=== PATIENT | female | born 1970 | race Caucasian/White ===

== ENCOUNTER 2016-12-12 20:38 | Emergency (ER) | payer OTHER ==
[~2016-12-12] VITALS: Ht 180.3 cm; Wt 72.6 kg
[~2016-12-12 20:38] MED LIST: GBPN300C PO; NAPR-243 PO; NITR-65 PO; PARO20TA57 PO
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
--- NOTE | 2016-12-12 21:14 | Diagnostic Imaging Report ---
INDICATION: Injury to right hand. EXAM: AP, lateral and oblique views of the right hand are obtained at 9:20 hours p.m. FINDINGS: There is an acute fracture of the distal aspect of the fifth metacarpal, with slight volar angulation of the distal fragment. The remaining bony structures are intact. IMPRESSION: Acute fifth metacarpal fracture, as described above. Dictated by: Dictated on workstation # [id number]
[2016-12-12] MEDS ORDERED: RX-NAPROXEN (NAPROSYN) 250 MG TAB PPK#4 PO STA (21:15)
[2016-12-12] MEDS ORDERED: RX-TRAMADOL 50 MG (ULTRAM) TAB PPK#4 PO STA (21:15)
[2016-12-12] MEDS ORDERED: TRAM-42 PO (21:20)
[2016-12-12] MEDS ORDERED: NAPR500T3 PO (21:20)
[2016-12-12 21:27] VITALS: BP 119/61
== END 2016-12-12 21:29 | disposition home or self-care (01) ==
LOC: EDUNIT# 20:38 → ER 20:41
DX: S62.326A Displaced fracture of shaft of fifth metacarpal bone, right hand, initial encounter for closed fracture (principal); F17.210 Nicotine dependence, cigarettes, uncomplicated; W23.1XXA Caught, crushed, jammed, or pinched between stationary objects, initial encounter; Y92.013 Bedroom of single-family (private) house as the place of occurrence of the external cause; Y99.8 Other external cause status
CPT/HCPCS: 73130; 99283

== ENCOUNTER 2017-03-09 09:42 | Emergency (ER) | payer OTHER ==
[~2017-03-09] VITALS: Ht 167.6 cm; Wt 56.7 kg
[~2017-03-09 09:42] MED LIST changes: +NAPR500T3 PO; +TRAM-42 PO
[2017-03-09] MEDS ORDERED: NS IV 1000 ML 1,000 ML IV ONE (11:04)
--- NOTE | 2017-03-09 11:07 | ED General ---
General Chief Complaint: Abdominal/GI Problems Stated Complaint: DEHYDRATION SYMPTOMS/OVERHEATED 2 DAYS AGO Nursing Triage Note: C/O VOMITING AND ABD CRAMPING. ONSET TUESDAY. NO VOMITING TODAY. STATES SHE DOESN'T LIKE TO DRINK GATORAID/POWERAIDE. DECREASED URINATION. Nursing Sepsis Screen: No Definite Risk Source of Information: Patient Exam Limitations: No Limitations History of Present Illness Time Seen by Provider: 10:57 Initial Comments Here with report of being dehydrated. 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 States that she has not had a urination since then. Denies nausea or vomiting. States that she has been drinking fluids. Denies diarrhea. Timing/Duration: 1-2 Days Severity: Moderate Associated Systoms: No Cough, No Fever/Chills, No Nausea/Vomiting, No Weakness Allergies and Home Medications Allergies Coded Allergies: Sulfa(Sulfonamide Antibiotics) (Verified Allergy, Unknown, 11/17/07) Constitutional: see HPI, No chills, No fever EENTM: no symptoms reported Respiratory: no symptoms reported Cardiovascular: no symptoms reported Gastrointestinal: no symptoms reported Genitourinary: see HPI, decreased output Musculoskeletal: No back pain, muscle pain Skin: no symptoms reported All Other Systems Reviewed Negative Unless Noted: Yes Past Nzceuwf-Jvkjvm-Yektcu Hx Patient Social History Alcohol Use: Denies Use Recreational Drug Use: Yes (SMOKES 1 PPD) Smoking Status: Current Everyday Smoker Type Used: Cigarettes Recent Foreign Travel: No Contact w/Someone Who Travel: No Recent Infectious Disease Expo: No Recent Hopitalizations: No Immunizations Up To Date Tetanus Booster (TDap): Less than 5yrs Surgeries HX Surgeries: Yes (HYST/BSO; OVARIAN CYST REMOVAL; BILATERAL WRIST FRACTURE SURGERIES) Surgeries: Appendectomy, Hysterectomy, Oophorectomy, Orthopedic Respiratory Hx Respiratory Disorders: No Cardiovascular Hx Cardiac Disorders: No Neurological Hx Neurological Disorders: Yes Neurological Disorders: Headaches /Migraines Reproductive System Hx Reproductive Disorders: Yes (OVARIAN CYST) Female 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 Genitourinary Hx Genitourinary Disorders: Yes (HAS HAD UTI'S) Genitourinary Disorders: Bladder Infection Gastrointestinal Hx Gastrointestinal Disorders: No Musculoskeletal Hx Musculoskeletal Disorders: Yes Musculoskeletal Disorders: Chronic Back Pain, Fractures Endocrine Hx Endocrine Disorders: No HEENT HX ENT Disorders: Yes (ALL TEETH REMOVED) Cancer Hx Cancer: No Psychosocial Hx Psychiatric Problems: Yes Behavioral Health Disorders: Anxiety Integumentary HX Skin/Integumentary Disorder: No Blood Transfusions Hx Blood Disorders: No Reviewed Nursing Assessment Reviewed/Agree w Nursing PMH: Yes Family Medical History Significant Family History: No Pertinent Family Hx Physical Exam Vital Signs Vital Sign - Last 12Hours 03/09/17 10:21 Temp 96.9 Pulse 82 Resp 16 B/P (MAP) 111/69 Pulse Ox 98 O2 Delivery Room Air Capillary Refill : Less Than 3 Seconds General Appearance: No Apparent Distress, WD/WN HEENT: PERRL/EOMI, Pharynx Normal Neck: Non Tender, Supple Respiratory: Lungs Clear, Normal Breath Sounds Cardiovascular: Regular Rate, Rhythm, No Murmur Gastrointestinal: Non Tender, Soft Back: Normal Inspection, No CVA Tenderness, No Vertebral Tenderness Extremity: Non Tender, No Calf Tenderness Neurologic/Psychiatric: Alert, Oriented x3 Skin: Normal Color, Warm/Dry Progress/Results/Core Measures Results/Orders Lab Results Laboratory Tests Test 03/09/17 11:10 03/09/17 11:45 Range/Units Urine Color YELLOW Urine Clarity CLEAR Urine pH 5 5-9 Urine Specific [place] 1.030 H 1.016-1.022 Urine Protein 1+ H NEGATIVE Urine Glucose (UA) NEGATIVE NEGATIVE Urine Ketones NEGATIVE NEGATIVE Urine Nitrite NEGATIVE NEGATIVE Urine Bilirubin NEGATIVE NEGATIVE Urine Urobilinogen NORMAL NORMAL MG/DL Urine Leukocyte Esterase NEGATIVE NEGATIVE Urine RBC (Auto) 1+ H NEGATIVE Urine RBC RARE /HPF Urine WBC NONE /HPF Urine Squamous Epithelial Cells 5-10 /HPF Urine Crystals NONE /LPF Urine Bacteria TRACE /HPF Urine Casts PRESENT /LPF Urine Hyaline Casts RARE /LPF Urine Mucus SMALL H /LPF Urine Yeast FEW H /HPF Urine Culture Indicated YES White Blood Count 7.0 4.3-11.0 10^3/uL Red Blood Count 4.50 4.35-5.85 10^6/uL Hemoglobin 12.9 11.5-16.0 G/DL Hematocrit 38 35-52 % Mean Corpuscular Volume 85 80-99 FL Mean Corpuscular Hemoglobin 29 25-34 PG Mean Corpuscular Hemoglobin Concent 34 32-36 G/DL Red Cell Distribution Width 13.8 10.0-14.5 % Platelet Count 218 130-400 10^3/uL Mean Platelet Volume 11.4 H 7.4-10.4 FL Neutrophils (%) (Auto) 49 42-75 % Lymphocytes (%) (Auto) 42 12-44 % Monocytes (%) (Auto) 5 0-12 % Eosinophils (%) (Auto) 3 0-10 % Basophils (%) (Auto) 1 0-10 % Neutrophils # (Auto) 3.5 1.8-7.8 X 10^3 Lymphocytes # (Auto) 3.0 1.0-4.0 X 10^3 Monocytes # (Auto) 0.4 0.0-1.0 X 10^3 Eosinophils # (Auto) 0.2 0.0-0.3 10^3/uL Basophils # (Auto) 0.0 0.0-0.1 10^3/uL Sodium Level 141 135-145 MMOL/L Potassium Level 3.6 3.6-5.0 MMOL/L Chloride Level 107 98-107 MMOL/L Carbon Dioxide Level 27 21-32 MMOL/L Anion Gap 7 5-14 MMOL/L Blood Urea Nitrogen 15 7-18 MG/DL Creatinine 0.93 0.60-1.30 MG/DL Estimat Glomerular Filtration Rate > 60 BUN/Creatinine Ratio 16 Glucose Level 92 70-105 MG/DL Calcium Level 9.5 8.5-10.1 MG/DL Total Bilirubin 0.2 0.1-1.0 MG/DL Aspartate Amino Transf (AST/SGOT) 21 5-34 U/L Alanine Aminotransferase (ALT/SGPT) 18 0-55 U/L Alkaline Phosphatase 95 40-136 U/L Total Creatine Kinase 164 29-168 U/L Total Protein 7.2 6.4-8.2 GM/DL Albumin 4.4 3.2-4.5 GM/DL My Orders Orders - RAJI WONG MD Cbc With Automated Diff (03/09/17 11:04) Comprehensive Metabolic Panel (03/09/17 11:04) Creatine Kinase (03/09/17 11:04) Ua Culture If Indicated (03/09/17 11:04) Saline Lock/Iv-Start (03/09/17 11:04) Ns Iv 1000 Ml (Sodium Chloride 0.9%) (03/09/17 11:04) Urine Culture (03/09/17 11:10) Medications Given in ED Current Medications Medications Dose Ordered Sig/Adenike Route Start Time Stop Time Status Last Admin Dose Admin Sodium Chloride 1,000 ml @ 0 mls/hr Q0M ONCE IV 03/09/17 11:04 03/09/17 11:06 DC 03/09/17 11:39 1,000 MLS/HR Vital Signs/I&O Vital Sign - Last 12Hours 03/09/17 10:21 Temp 96.9 Pulse 82 Resp 16 B/P (MAP) 111/69 Pulse Ox 98 O2 Delivery Room Air Blood Pressure Mean: 83 Progress Note : Progress Note Seen and evaluated. IV, labs and UA ordered. Normal saline 1 L bolus. Monitor patient. 1250: Patient is feeling better and would like to go home. No significant amount and labs. She is requesting note for work. This was given. Discharged home with return precautions. Patient verbalize understanding instructions and agreement with plan. Departure Impression Impression: Primary Impression: Dehydration Disposition: 01 HOME, SELF-CARE Condition: Improved Departure-Patient Inst. Decision time for Depature: 12:52 Referrals: [facility] (PCP/Family) Primary Care Physician Patient Instructions: Dehydration, Adult (DC) Add. Discharge Instructions: All discharge instructions reviewed with patient and/or family. Voiced understanding. Drink plenty of fluids. Follow-up with your DrMilton in a few days for recheck. Return for worsening, fever, vomiting, weakness, breathing problems or other concerns as needed. Work/School Note: Work Release Form Date Seen in the Emergency Department: Mar 09, 2017 Return to Work: Mar 11, 2017 Restrictions: No Restrictions RAJI WONG MD Mar 09, 2017 11:07
[2017-03-09 11:56] LABS: BASOPHILS % (AUTO) 1 % (0-10); EOSINOPHILS # (AUTO) 0.2 10^3/uL (0.0-0.3); EOSINOPHILS % (AUTO) 3 % (0-10); LYMPHOCYTES % (AUTO) 42 % (12-44); MEAN CORPUSCULAR HEMOGLOBIN 29 PG (25-34); MEAN CORPUSCULAR HGB CONC 34 G/DL (32-36); MEAN CORPUSCULAR VOLUME 85 FL (80-99); MEAN PLATELET VOLUME 11.4 FL (7.4-10.4); MONOCYTES # (AUTO) 0.4 X 10^3 (0.0-1.0); MONOCYTES % (AUTO) 5 % (0-12); NEUTROPHILS # (AUTO) 3.5 X 10^3 (1.8-7.8); NEUTROPHILS % (AUTO) 49 % (42-75); PLATELET COUNT 218 10^3/uL (130-400); RED CELL DISTRIBUTION WIDTH 13.8 % (10.0-14.5)
[2017-03-09 11:58] LABS: BILIRUBIN,URINE NEGATIVE (NEGATIVE); KETONES,URINE NEGATIVE (NEGATIVE); LEUKOCYTE ESTERASE ,URINE NEGATIVE (NEGATIVE); NITRITE,URINE NEGATIVE (NEGATIVE); PH,URINE 5 (5-9); PROTEIN,URINE 1+ (NEGATIVE); UROBILINOGEN,URINE NORMAL (NORMAL)
[2017-03-09 12:13] LABS: ALANINE AMINOTRANSFERASE 18 U/L (0-55); ALBUMIN 4.4 GM/DL (3.2-4.5); ANION GAP 7 MMOL/L (5-14); ASPARTATE AMINO TRANSFERASE 21 U/L (5-34); BILIRUBIN,TOTAL 0.2 MG/DL (0.1-1.0); BLOOD UREA NITROGEN 15 MG/DL (7-18); BUN/CREATININE RATIO 16; CALCIUM 9.5 MG/DL (8.5-10.1); CARBON DIOXIDE 27 MMOL/L (21-32); CHLORIDE 107 MMOL/L (98-107); CREATINE KINASE 164 U/L (29-168); CREATININE SERUM 0.93 MG/DL (0.60-1.30); GFR ESTIMATED > 60; GLUCOSE 92 MG/DL (70-105); POTASSIUM 3.6 MMOL/L (3.6-5.0); SODIUM 141 MMOL/L (135-145); TOTAL PROTEIN 7.2 GM/DL (6.4-8.2)
[2017-03-09 12:13] LABS: HYALINE CASTS, URINE RARE /LPF; YEAST,URINE FEW /HPF
[2017-03-09 12:58] VITALS: BP 110/60
== END 2017-03-09 12:56 | disposition home or self-care (01) ==
LOC: EDUNIT# 09:42 → ER 09:46
DX: E86.0 Dehydration (principal); F41.9 Anxiety disorder, unspecified; G43.909 Migraine, unspecified, not intractable, without status migrainosus; F17.210 Nicotine dependence, cigarettes, uncomplicated; Z90.49 Acquired absence of other specified parts of digestive tract; Z90.710 Acquired absence of both cervix and uterus
CPT/HCPCS: 36415; 80053; 81000; 82550; 85025; 87088; 96360

== ENCOUNTER 2017-08-19 13:33 | Emergency (ER) | payer SELFPAY ==
[~2017-08-19] VITALS: Ht 175.3 cm; Wt 60.8 kg
[~2017-08-19 13:33] MED LIST changes: -NAPR500T3 PO; +NAPR500T4 PO
--- NOTE | 2017-08-19 13:55 | ED Integumentary General ---
General Stated Complaint: RASH Source: patient Exam Limitations: no limitations History of Present Illness Time seen by provider: 13:51 Initial Comments To ER with an itchy rash that began on the right elbow Tuesday of this week. Today is Tuesday. [facility] Tuesday of this week and was given Vistaril for itching and permethrin cream. She has been applying the permethrin cream only to the itchy areas. Timing/Duration: just prior to arrival Severity: moderate Associated Symptoms: denies symptoms Allergies and Home Medications Allergies Coded Allergies: Sulfa(Sulfonamide Antibiotics) (Verified Allergy, Unknown, 11/17/07) Constitutional: see HPI EENTM: see HPI Respiratory: no symptoms reported Cardiovascular: no symptoms reported Genitourinary: no symptoms reported Musculoskeletal: no symptoms reported Skin: see HPI Psychiatric/Neurological: No Symptoms Reported Endocrine: No Symptoms Reported Past Vghajxq-Yqqndc-Itaavg Hx Patient Social History Type Used: Cigarettes Recent Foreign Travel: No Contact w/Someone Who Travel: No Recent Hopitalizations: No Immunizations Up To Date Tetanus Booster (TDap): Less than 5yrs Surgeries History of Surgeries: Yes (HYST/BSO; OVARIAN CYST REMOVAL; BILATERAL WRIST FRACTURE SURGERIES) Surgeries: Appendectomy, Hysterectomy, Oophorectomy, Orthopedic Respiratory History of Respiratory Disorde: No Cardiovascular History of Cardiac Disorders: No Neurological History of Neurological Disord: Yes Neurological Disorders: Headaches /Migraines Reproductive System Hx Reproductive Disorders: Yes (OVARIAN CYST) Female 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 Genitourinary Genitourinary Disorders: Bladder Infection Gastrointestinal History of Gastrointestinal Di: No Musculoskeletal History of Musculoskeletal Dis: Yes Musculoskeletal Disorders: Chronic Back Pain, Fractures Endocrine History of Endocrine Disorders: No Cancer History of Cancer: No Psychosocial History of Psychiatric Problem: Yes Behavioral Health Disorders: Anxiety Integumentary History of Skin or Integumenta: No Blood Transfusions History of Blood Disorders: No Family Medical History Significant Family History: No Pertinent Family Hx Physical Exam Vital Signs Capillary Refill : General Appearance: WD/WN, no apparent distress HEENT: PERRL/EOMI, normal ENT inspection Neck: non-tender, full range of motion Respiratory: no respiratory distress, no accessory muscle use Gastrointestinal: non tender, soft Neurologic/Psychiatric: alert, normal mood/affect, oriented x 3 Skin: normal color, warm/dry Skin Problem Location: upper extremities, lower extremities Skin Problem Character: other (she does have a erythematous papular rash between the fingers, volar surface of the wrist, around her neck, upper arms and down her legs. Spares her face, spares her palms. No oral lesions. No fevers or chills by history.) Departure Impression Impression: Primary Impression: Scabies Disposition: 01 HOME, SELF-CARE Condition: Stable Departure-Patient Inst. Decision time for Depature: 13:56 Referrals: [facility] (PCP/Family) Primary Care Physician Patient Instructions: Scabies Add. Discharge Instructions: 1. Apply the cream from your neck to your toes after a shower. Leave it in place for about 12 hours and then rinse off in the shower. It may take a few days noticed improvement. Scripts Permethrin (Permethrin) 60 Gm Cream..g. 60 GM TP ONCE, #1 TUBE Prov: GONZALO EDWARDS APRN 08/19/17 GONZALO EDWARDS APRN Aug 19, 2017 13:55
[2017-08-19] MEDS ORDERED: PERM60CR4 TP (13:57)
[2017-08-19 14:13] VITALS: BP 122/68
== END 2017-08-19 14:13 | disposition home or self-care (01) ==
LOC: EDUNIT# 13:33 → ER 13:35
DX: B86 Scabies (principal); G43.909 Migraine, unspecified, not intractable, without status migrainosus; F41.9 Anxiety disorder, unspecified; Z87.42 Personal history of other diseases of the female genital tract; Z87.81 Personal history of (healed) traumatic fracture; Z90.710 Acquired absence of both cervix and uterus; Z90.49 Acquired absence of other specified parts of digestive tract
CPT/HCPCS: 99282

== ENCOUNTER → 2018-04-17 | Outpatient (CLI) | payer OTHER ==
[~2018-04-17] MED LIST changes: +NAPR-915 PO; -NAPR500T4 PO; +PERM60CR4 TP
--- NOTE | 2018-04-17 17:54 | Diagnostic Imaging Report ---
INDICATION: Routine screening. COMPARISON: Comparison is made with prior mammograms from 06/18/2010 and 03/25/2009. TECHNIQUE: 2D and 3D bilateral screening mammography was performed with computer-aided detection (CAD) system. FINDINGS: Scattered fibroglandular densities are identified bilaterally. No dominant mass or malignant appearing microcalcifications are seen. The axillae are unremarkable. Benign calcification on the left is seen. IMPRESSION: No mammographic features suspicious for malignancy are identified. ACR BI-RADS Category 2: Benign findings. Result letter will be mailed to the patient. Note: At least 10% of breast cancer is not imaged by mammography. Dictated by: Dictated on workstation # [id number]
== END ==
LOC: RAD 09:32
PROVIDERS: ATTEND Nurse Practitioner Primary Care
DX: N64.4 Mastodynia (principal)
CPT/HCPCS: 77067

== ENCOUNTER → 2018-06-29 | Outpatient (CLI) | payer OTHER ==
--- NOTE | 2018-06-29 19:53 | Diagnostic Imaging Report ---
INDICATION: Pain and lump in the upper outer aspect of the left breast. COMPARISON: Prior study from 04/17/2018. EXAMINATION: 2D and 3D unilateral left diagnostic mammography was performed with CAD. FINDINGS: Left breast is heterogeneously dense, limiting the sensitivity of mammography. No mass or malignant appearing microcalcifications are seen. Overall parenchymal pattern is stable. There is an asymmetric density in the outer aspect of the left breast but this appears stable. Left axilla is unremarkable. IMPRESSION: No mammographic features suspicious for malignancy are identified. Even so, sonographic interrogation of the area of pain and lump in the lateral left breast is recommended and will be performed today. ACR BI-RADS Category 0: Incomplete. (Needs additional imaging evaluation). Result letter will be mailed to the patient. Note: At least 10% of breast cancer is not imaged by mammography. Dictated by: Dictated on workstation # [id number]
--- NOTE | 2018-06-30 08:18 | Diagnostic Imaging Report ---
Indication: Left breast pain. Correlation is made with diagnostic mammogram earlier same day. Sonographic interrogation of the entire left breast, including the retroareolar region and left axilla, was performed. No sonographic abnormality is seen. No solid or cystic mass is detected. Impression: BI-RADS category 1. Unremarkable left breast ultrasound. Clinical followup is recommended. ACR BI-RADS Category 1: Negative. Result letter will be mailed to the patient. Note: At least 10% of breast cancer is not imaged by mammography. Dictated by: Dictated on workstation # [id number]
== END ==
LOC: RAD 13:09
PROVIDERS: ATTEND Nurse Practitioner Primary Care
DX: N63.21 Unspecified lump in the left breast, upper outer quadrant (principal)
CPT/HCPCS: 76641